=== PATIENT | female | born 1985 | race African-American/Black ===

== ENCOUNTER 2016-07-04 14:19 | Emergency (ER) | payer OTHER | END 2016-07-04 16:48 | disposition home or self-care (01) | LOC: FER 14:19 | DX: S06.0X9A Concussion with loss of consciousness of unspecified duration, initial encounter (principal); Z88.5 Allergy status to narcotic agent; W18.39XA Other fall on same level, initial encounter; Y92.69 Other specified industrial and construction area as the place of occurrence of the external cause; Y99.0 Civilian activity done for income or pay | CPT/HCPCS: 70450; 72125 ==